=== PATIENT | male | born 1955 | race Caucasian/White ===

== ENCOUNTER → 2019-07-20 08:49 | Outpatient (REF) | payer MEDICARE, SELFPAY | LOC: ANHLAB 08:49 | PROVIDERS: PCP Family Medicine; Visit Provider Nurse Practitioner | DX: D49.2 Neoplasm of unspecified behavior of bone, soft tissue, and skin (principal); C44.1192 Basal cell carcinoma of skin of left lower eyelid, including canthus | CPT/HCPCS: 88305 ==

== ENCOUNTER → 2019-08-07 09:56 | Outpatient (REF) | payer MEDICARE, SELFPAY | LOC: ANHLAB 09:56 | PROVIDERS: PCP Family Medicine; Visit Provider Nurse Practitioner | DX: C44.111 Basal cell carcinoma of skin of unspecified eyelid, including canthus (principal) | CPT/HCPCS: 88305; 88331 ==

== ENCOUNTER 2019-12-02 01:33 | Outpatient (CLI) | payer MEDICARE, SELFPAY ==
[2019-12-02 18:03] LABS: SARS-CoV-2 RNA PCR Negative
== END 2019-12-02 01:34 | disposition home or self-care (01) ==
LOC: ANHCOVIDDT 01:33
PROVIDERS: PCP Family Medicine; Visit Provider Internal Medicine Critical Care Medicine
DX: Z01.812 Encounter for preprocedural laboratory examination (principal); Z20.828 Contact with and (suspected) exposure to other viral communicable diseases
CPT/HCPCS: 87635; C9803; U0003

== ENCOUNTER 2019-12-05 06:33 | Outpatient (CLI) | payer MEDICARE, SELFPAY ==
--- NOTE | 2019-12-21 13:13 | WPDSLEEPSTUD ---
Sleep Study Date of Study: 12/05/19 Ordering Provider: Ping Bardales MD Interpreting Physician: Ping Bardales MD Sleep Study Type: Polysomnogram Height: 1.68 m Weight: 80.7 kg Body Mass Index: 28.7 Neck Circumference (inches): 15 [place]: 3 Reason for Sleep Study History of severe IGGY in 2008 with PLM; no treatment, Dr Kline wanted follow up Sleep History Simba Zelaya is a 64 year old man referred by Dr Kline with a history of severe IGGY in January 2009 with periodic limb movements, was not treated. He does not feel that he has sleep issues, was referred due to cardiac history. The patient says that he has no issues with his sleep. He denies snoring, waking at night with heartburn or coughing, waking at night feeling short of breath, occasionally has trouble sleeping if he has a cold. He does not sweat excessively at night, does not notice his heart pounding at night, occasionally falls asleep in the day, rarely involuntarily, and does not comment if this has happened while driving. He does not fall asleep during physical effort, does not have loss of muscle tone with strong emotion, and does not have problems at work due to excessive daytime sleepiness. He denies feeling paralyzed on waking or falling asleep, and does not have vivid imagery on waking or falling sleep. He is not afraid to go to sleep. He does not have nightmares, does not remember his dreams, denies having racing thoughts. He rarely feels sad or depressed and rarely has anxiety. HE denies muscular tension, does not notice parts of his body jerking at night, and he does not kick at night. He denies having crawly or achy feelings in his legs or other leg pain at night. He does not have morning jaw pain, and denies grinding his teeth at night. He occasionally is bothered by pain in the day, rarely wakes with pain at night, never wakes up feeling stiff in the morning with sore achy muscles of pain in the neck and spine. He has memory problems sometimes and erectile dysfunction all the time. The patient says he had a heart attack approximately 10 years ago. He lost down to 155 lb and now is up to 178. As far as his sleep complaints he is not sure if he snores because his sleeps in a separate room. His bedtime is 10:00 p.m. falling asleep usually easily, but can take longer. He watches TV until falling asleep. He wakes in the night to urinate. Wake time is 5:00 a.m. He does feel refreshed. He does not have dreams recall. He drinks no coffee. He does have some Gatorade but that does not contain caffeine. Sometimes he has caffeine from other sources. The pain in his feet sometimes keeps him from falling asleep, better now. Wakes up with an extremely dry mouth on occasion. His mood is stable. [facility] Past Medical History Medical History (Updated 12/21/19 @ 14:30 by Ping Bardales MD) Abnormal stress test Erectile dysfunction Essential hypertension Grade I diastolic dysfunction Hyperlipidemia Memory difficulties IGGY (obstructive sleep apnea) (~01/2009) Prostate cancer screening Reflex sympathetic dystrophy Wellness examination Surgical History Surgical History (Updated 12/21/19 @ 13:40 by Ping Bardales MD) H/O knee surgery Status post fusion of wrist Family History Family History Father Hypertension Family history of cardiovascular disease Mother Diabetes mellitus Hypertension Sibling Carcinoma of colon Other Family history of arthritis Social History Social History Smoking status: Never smoker Alcohol intake: never Substance use: never Medications atorvastatin 20 mg orally daily bupropion 150 mg BID orally daily lisinopril 20 mg orally daily gabapentin 300 mg three times a day Aspirin 81 mg once a day Nitric oxide blend 425 mg daily DHEA 25 mg a day [facility] Fiber Therapy 200 mg twice a day Vitamin D3 25 mg twice a da
[2019-12-21 14:47] VITALS: BMI 28.7
== END 2019-12-05 06:34 | disposition home or self-care (01) ==
LOC: ANHCSM 15:25
PROVIDERS: PCP Family Medicine; Visit Provider Internal Medicine Critical Care Medicine
DX: G47.33 Obstructive sleep apnea (adult) (pediatric) (principal)
CPT/HCPCS: 95810

== ENCOUNTER → 2020-01-16 10:43 | Outpatient (REF) | payer MEDICARE, SELFPAY | LOC: ANHLAB 10:43 | PROVIDERS: PCP Family Medicine; Visit Provider Nurse Practitioner | DX: D49.2 Neoplasm of unspecified behavior of bone, soft tissue, and skin (principal) | CPT/HCPCS: 88305 ==

== ENCOUNTER 2020-09-25 12:29 | Outpatient (CLI) | payer MEDICARE, SELFPAY ==
[2020-09-25 12:56] LABS: Basophils Percent Auto 0.4 % (0.2-1.2); Hematocrit 54.7 % (42.0-52.0); Hemoglobin 18.6 g/dL (14.0-18.0); Immature Granulocyte Absolute 0.05 K/mm3 (0.00-0.031); Immature Granulocyte Percent A 0.6 % (0-0.5); Lymphocytes Absolute Auto 2.03 K/mm3 (0.9-3.2); Lymphocytes Percent Auto 22.8 % (18.3-44.2); Mean Corpuscular Hemoglobin 30.1 pg (26-34); Mean Corpuscular Volume 88.5 fl (80-100); Mean Platelet Volume 9.7 fl (7.4-10.4); Monocytes Absolute Auto 0.6 K/mm3 (0.1-0.6); Monocytes Percent Auto 6.5 % (2.6-8.5); Neutrophils Absolute Auto 6.2 K/mm3 (1.3-6.7); Neutrophils Percent Auto 69.7 % (45.5-73.1); Platelet Count Result 249 k/mm3 (150-375); Red Blood Count 6.18 M/mm3 (4.6-6.20); Red Cell Distribution Width 12.6 % (11.5-14.5); White Blood Count 8.9 K/mm3 (4.5-10.0)
[2020-09-25 13:41] LABS: Alanine Aminotransferase 51 U/L (4-50); Albumin Level 4.4 g/dL (3.5-5.1); Alkaline Phosphatase 60 U/L (38-126); Anion Gap 10 mmol/L (8-16); Aspartate Amino Transferase 46 U/L (17-59); Bilirubin,Total 0.7 mg/dL (0.2-1.3); Blood Urea Nitrogen 18 mg/dL (9-20); Calcium 9.8 mg/dL (8.4-10.2); Carbon Dioxide 26 mmol/L (22-30); Chloride 103 mmol/L (98-107); Estimated Glomerular Filt Rate > 60; Glucose 83 mg/dL (75-110); Potassium 4.3 mmol/L (3.4-5.0); Sodium 139 mmol/L (137-145)
[2020-09-27 16:36] LABS: Erythropoietin (EPO) 12.8 mIU/mL (2.6-18.5)
[2020-10-02 17:27] LABS: CALR Exon 9 Mutation Not Detected (Not Detected); CSF3R Exon 14/17 Mutation Not Detected (Not Detected); JAK2 Exon 12 Mutation Not Detected (Not Detected); JAK2 V617F Mutation Not Detected (Not Detected); MPL Exon 10 Mutation Not Detected (Not Detected); Specimen Source Blood
== END 2020-09-25 12:30 | disposition home or self-care (01) ==
LOC: ANHLAB 12:34
PROVIDERS: PCP Family Medicine; Visit Provider Internal Medicine Hematology & Oncology
DX: D75.1 Secondary polycythemia (principal)
CPT/HCPCS: 36415; 80053; 81219; 81270; 81402; 81403; 81479; 82668; 85025

== ENCOUNTER → 2020-10-14 08:00 | Outpatient (REF) | payer MEDICARE, SELFPAY | LOC: ANHLAB 08:00 | PROVIDERS: PCP Internal Medicine Cardiovascular Disease; Visit Provider Nurse Practitioner | DX: C44.319 Basal cell carcinoma of skin of other parts of face (principal) | CPT/HCPCS: 88305; 88331 ==

== ENCOUNTER → 2021-06-24 08:31 | Outpatient (REF) | payer MEDICARE, SELFPAY | LOC: ANHLAB 08:31 | PROVIDERS: PCP Family Medicine; Visit Provider Nurse Practitioner | DX: C44.219 Basal cell carcinoma of skin of left ear and external auricular canal (principal) | CPT/HCPCS: 88305 ==

== ENCOUNTER → 2021-08-11 10:00 | Outpatient (REF) | payer MEDICARE, SELFPAY | LOC: ANHLAB 10:00 | PROVIDERS: PCP Family Medicine; Visit Provider Nurse Practitioner | DX: C44.219 Basal cell carcinoma of skin of left ear and external auricular canal (principal) | CPT/HCPCS: 88305; 88331 ==

== ENCOUNTER 2021-11-11 07:53 | Outpatient (CLI) | payer MEDICARE, SELFPAY | END 2021-11-11 07:54 | disposition home or self-care (01) | LOC: ANHAUDIO 07:54 | PROVIDERS: PCP Family Medicine; Visit Provider Otolaryngology | DX: H90.3 Sensorineural hearing loss, bilateral (principal) | CPT/HCPCS: 92557; 92567 ==

== ENCOUNTER 2021-12-30 14:24 | Outpatient (NON) | payer MEDICARE, SELFPAY | END 2021-12-30 14:25 | disposition home or self-care (01) | LOC: ANHLAB 14:25 | PROVIDERS: PCP Family Medicine; Visit Provider Nurse Practitioner | DX: C44.529 Squamous cell carcinoma of skin of other part of trunk (principal) | CPT/HCPCS: 88305 ==

== ENCOUNTER 2022-01-19 14:32 | Outpatient (NON) | payer MEDICARE, SELFPAY | END 2022-01-19 14:33 | disposition home or self-care (01) | LOC: ANHLAB 14:33 | PROVIDERS: PCP Nurse Practitioner; Visit Provider Nurse Practitioner | DX: C44.92 Squamous cell carcinoma of skin, unspecified (principal) | CPT/HCPCS: 88305; 88331 ==

== ENCOUNTER 2022-01-28 01:15 | Day surgery (SDC) | payer MEDICARE, SELFPAY ==
[2022-01-19 14:58] VITALS: BMI 26.6
--- NOTE | 2022-01-27 08:50 | PM.HPGS ---
History of Present Illness History of Present Illness Consent: Risks, benefits, and alternatives have been discussed and questions answered. Patient agrees to proceed with procedure. Chief complaint: family hx colon ca Narrative: Simba Zelaya is a 66 year old male here for screening colonoscopy. He has a family history of colon cancer. He also has had polyps removed himself in the past. Review of Systems Review of Systems: All systems reviewed & are unremarkable except as noted in HPI and below PMFSH Past Medical History Medical History Abnormal stress test Erectile dysfunction Essential hypertension Grade I diastolic dysfunction High cholesterol Hyperlipidemia Lateral epicondylitis of right elbow Lewy body dementia Memory difficulties IGGY (obstructive sleep apnea) (~01/2009) Parkinsonism Prostate cancer screening Reflex sympathetic dystrophy Skin cancer Wellness examination Surgical History Surgical History H/O knee surgery Status post fusion of wrist Status post fusion of wrist Family History Family History Father Hypertension Family history of cardiovascular disease Heart disease Mother Diabetes mellitus Hypertension Sibling Carcinoma of colon Brain cancer Other Family history of arthritis Social History Social History Smoking status: Never smoker Second hand tobacco smoke exposure: Yes Alcohol intake: former Alcohol use details: quit 1993 Substance use: never Substance use type: does not use Living arrangements: with family Gender identity (if verbalized by the patient): Male Sexual Orientation (if Verbalized by the Patient): Straight or Heterosexual Spiritual care concerns: No Meds Home Medications and Allergies Home Medications Medication Instructions Recorded Confirmed Type aspirin 81 mg tablet,delayed 81 mg PO DAILY 05/03/20 01/19/22 History release (Adult Aspirin Regimen) cholecalciferol (vitamin D3) 25 25 mcg PO DAILY 05/03/20 01/19/22 History mcg (1,000 unit) capsule multivitamin (Daily Multi-Vitamin 1 tablet PO DAILY 05/03/20 01/19/22 History tablet) nitric oxide blend 425 mg PO DAILY 05/03/20 01/19/22 History prasterone (dhea) 25 mg capsule 25 mg PO DAILY 05/03/20 01/19/22 History (DHEA) famotidine 40 mg tablet (Pepcid) 40 mg PO DAILY #1 tablet 08/27/20 01/19/22 Rx lisinopril 20 mg tablet 20 mg PO DAILY #90 tabs 07/16/21 01/19/22 Rx cetirizine 10 mg tablet (24Hour 10 mg PO DAILY PRN Allergy Symptoms 10/17/21 01/19/22 History Allergy) trazodone 50 mg tablet 50 mg PO QHS PRN Pain 10/17/21 01/19/22 History atorvastatin 20 mg tablet 40 mg PO DAILY 11/19/21 01/19/22 History gabapentin 300 mg capsule 400 mg PO TID 11/19/21 01/19/22 History fluticasone propionate 50 See Rx Instructions .Route 12/22/21 01/19/22 Rx mcg/actuation nasal .COMPLEX #80 grams spray,suspension duloxetine 60 mg capsule,delayed 60 mg PO DAILY 01/19/22 01/19/22 History release sprinkle (Drizalma Sprinkle) Allergies Allergy/AdvReac Type Severity Reaction Status Date / Time No Known Allergies Allergy Verified 01/28/22 06:20 Exam Resp: Auscultation: clear to auscultation bilaterally Cardio: Rate: regular rate Rhythm: regular rhythm GI: GI Palp: Yes Soft to palpation and No Tenderness to palpation present (GI) Assessment and Plan Assessment and plan (1) Colon cancer screening: Code(s): Z12.11 - Encounter for screening for malignant neoplasm of colon Status: Acute Assessment and Plan: Colonoscopy with possible biopsy or polypectomy or cautery or injection of substances.
[2022-01-28 06:20] VITALS: BP 120/77; PULSE 81; RESP 18; TEMP 36.4; O2SAT 100
[2022-01-28] MEDS: LACTATED RINGERS 1,000 ML 150 ML IV CONT (06:31)
--- NOTE | 2022-01-28 07:27 | WPDANESEPPF ---
Anes - Initial Pre Proc Eval Procedure: Operation Date: 01/28/22 07:30 Proposed Procedures p Screening Colonoscopy - Antwan Leigh MD Date/Time: 01/28/22 07:27 Surgeon: Antwan Leigh MD Pre Op Diagnosis: family hx colon ca Patient Data Age: 66 Gender: M Height: 1.68 m Weight: 76.7 kg Last Vital Signs Temp 97.6 F 01/28/22 06:20 Pulse 81 01/28/22 06:20 Resp 18 01/28/22 06:20 BP 120/77 01/28/22 06:20 Pulse Ox 100 01/28/22 06:20 O2 Del Method Room Air 01/28/22 06:20 Allergies Allergy/AdvReac Type Severity Reaction Status Date / Time No Known Allergies Allergy Verified 01/28/22 06:20 Home Medications Medication Instructions Recorded Confirmed Type aspirin 81 mg tablet,delayed 81 mg PO DAILY 05/03/20 01/19/22 History release (Adult Aspirin Regimen) cholecalciferol (vitamin D3) 25 25 mcg PO DAILY 05/03/20 01/19/22 History mcg (1,000 unit) capsule multivitamin (Daily Multi-Vitamin 1 tablet PO DAILY 05/03/20 01/19/22 History tablet) nitric oxide blend 425 mg PO DAILY 05/03/20 01/19/22 History prasterone (dhea) 25 mg capsule 25 mg PO DAILY 05/03/20 01/19/22 History (DHEA) famotidine 40 mg tablet (Pepcid) 40 mg PO DAILY #1 tablet 08/27/20 01/19/22 Rx lisinopril 20 mg tablet 20 mg PO DAILY #90 tabs 07/16/21 01/19/22 Rx cetirizine 10 mg tablet (24Hour 10 mg PO DAILY PRN Allergy Symptoms 10/17/21 01/19/22 History Allergy) trazodone 50 mg tablet 50 mg PO QHS PRN Pain 10/17/21 01/19/22 History atorvastatin 20 mg tablet 40 mg PO DAILY 11/19/21 01/19/22 History gabapentin 300 mg capsule 400 mg PO TID 11/19/21 01/19/22 History fluticasone propionate 50 See Rx Instructions .Route 12/22/21 01/19/22 Rx mcg/actuation nasal .COMPLEX #80 grams spray,suspension duloxetine 60 mg capsule,delayed 60 mg PO DAILY 01/19/22 01/19/22 History release sprinkle (Keira Sprinkle) Patient hx anesthesia problems: none Family hx anesthesia problems: none Results Review: All pre-operative results and documents have been reviewed as part of the pre-operative evaluation. [facility] Past Medical History Medical History Abnormal stress test Erectile dysfunction Essential hypertension Grade I diastolic dysfunction High cholesterol Hyperlipidemia Lateral epicondylitis of right elbow Lewy body dementia Memory difficulties IGGY (obstructive sleep apnea) (~01/2009) Parkinsonism Prostate cancer screening Reflex sympathetic dystrophy Skin cancer Wellness examination Surgical History Surgical History H/O knee surgery Status post fusion of wrist Status post fusion of wrist Family History Family History Father Hypertension Family history of cardiovascular disease Heart disease Mother Diabetes mellitus Hypertension Sibling Carcinoma of colon Brain cancer Other Family history of arthritis Social History Social History Smoking status: Never smoker Second hand tobacco smoke exposure: Yes Alcohol intake: former Alcohol use details: quit 1993 Substance use: never Substance use type: does not use Living arrangements: with family Gender identity (if verbalized by the patient): Male Sexual Orientation (if Verbalized by the Patient): Straight or Heterosexual Spiritual care concerns: No Anes - Eval Final PreProcedure Day of Procedure 01/28/22 07:27 Patient weight: normal Heart: regular rate and rhythm Lungs: clear to auscultation Airway: Mallampati scale class III Neurological: alert and oriented Last oral intake: >/= 8 hours ASA classification: III Emergent: no Anesthetic plan: proceed Anesthesia type and monitoring: general GIVS and standard monitoring Results Review: All pre-operative results and documents have been re
[2022-01-28 07:45] VITALS: BP 85/56; PULSE 60; RESP 18; O2SAT 97
[2022-01-28 07:55] VITALS: BP 111/74; PULSE 62; RESP 19; O2SAT 97
[2022-01-28 08:05] VITALS: BP 109/76; PULSE 61; RESP 15; O2SAT 100
== END 2022-01-28 08:14 | disposition home or self-care (01) ==
PROVIDERS: PCP Family Medicine; Visit Provider Internal Medicine Gastroenterology
PROC: 0DJD8ZZ Inspection of Lower Intestinal Tract, Via Natural or Artificial Opening Endoscopic (ICD-10-PCS; CPT 45378; principal; 2022-01-28 07:30)
DX: Z12.11 Encounter for screening for malignant neoplasm of colon (principal); K57.30 Diverticulosis of large intestine without perforation or abscess without bleeding; K64.8 Other hemorrhoids; K64.4 Residual hemorrhoidal skin tags; Z86.010 Personal history of colon polyps; Z80.0 Family history of malignant neoplasm of digestive organs; Z79.82 Long term (current) use of aspirin; I11.9 Hypertensive heart disease without heart failure; E78.5 Hyperlipidemia, unspecified; G47.30 Sleep apnea, unspecified; G20 Parkinson's disease; F02.80 Dementia in other diseases classified elsewhere, unspecified severity, without behavioral disturbance, psychotic disturbance, mood disturbance, and anxiety; G90.50 Complex regional pain syndrome I, unspecified
CPT/HCPCS: G0105; J2001; J2704; J7120

== ENCOUNTER 2022-06-30 09:52 | Outpatient (NON) | payer MEDICARE, SELFPAY | END 2022-06-30 09:53 | disposition home or self-care (01) | LOC: ANHLAB 07-01 09:55 | PROVIDERS: PCP Family Medicine; Visit Provider Nurse Practitioner | DX: D22.72 Melanocytic nevi of left lower limb, including hip (principal) | CPT/HCPCS: 88305 ==

== ENCOUNTER 2022-07-28 12:17 | Outpatient (NON) | payer MEDICARE, SELFPAY | END 2022-07-28 12:18 | disposition home or self-care (01) | LOC: ANHLAB 07-29 12:17 | PROVIDERS: PCP Family Medicine; Visit Provider Nurse Practitioner | DX: I78.1 Nevus, non-neoplastic (principal) | CPT/HCPCS: 88305 ==

== ENCOUNTER 2022-11-18 01:11 | Day surgery (SDC) | payer MEDICARE, SELFPAY ==
[2022-11-17 11:44] VITALS: BMI 27.5
[2022-11-18] VITALS (9 sets, daily range): BP systolic 110–138; BP diastolic 76–93; PULSE 54–67; RESP 16–18; TEMP 36.5; O2SAT 94–100; BMI 28.5
[2022-11-18 07:53] LABS: Basophils Percent Auto 0.6 % (0.2-1.2); Hematocrit 41.2 % (42.0-52.0); Hemoglobin 14.3 g/dL (14.0-18.0); Immature Granulocyte Absolute 0.02 K/mm3 (0.00-0.031); Immature Granulocyte Percent A 0.3 % (0-0.5); Lymphocytes Percent Auto 34.6 % (18.3-44.2); Mean Corpuscular HGB Conc 34.7 g/dl (32-36); Mean Corpuscular Hemoglobin 30.5 pg (26-34); Mean Corpuscular Volume 87.8 fl (80-100); Mean Platelet Volume 10.4 fl (7.4-10.4); Monocytes Absolute Auto 0.6 K/mm3 (0.1-0.6); Monocytes Percent Auto 9.6 % (2.6-8.5); Neutrophils Absolute Auto 3.6 K/mm3 (1.3-6.7); Neutrophils Percent Auto 54.9 % (45.5-73.1); Platelet Count Result 234 k/mm3 (150-375); Red Blood Count 4.69 M/mm3 (4.6-6.20); Red Cell Distribution Width 11.8 % (11.5-14.5); White Blood Count 6.6 K/mm3 (4.5-10.0)
[2022-11-18 07:59] LABS: Anion Gap 9 mmol/L (8-16); Blood Urea Nitrogen 18 mg/dL (9-20); Calcium 9.1 mg/dL (8.4-10.2); Carbon Dioxide 24 mmol/L (22-30); Chloride 104 mmol/L (98-107); Estimated Glomerular Filt Rate > 60; Glucose 86 mg/dL (65-110); Potassium 3.7 mmol/L (3.4-5.0); Sodium 137 mmol/L (137-145)
--- NOTE | 2022-11-18 08:31 | WPDMODSED ---
Moderate Sedation Note-Pt Data Patient Data Diagnosis: Coronary artery disease with previous coronary CTA Present Complaint: exertional dyspnea? Ischemic equivalent Procedure to be performed/Plan: left heart catheterization Allergies Allergy/AdvReac Type Severity Reaction Status Date / Time No Known Allergies Allergy Verified 11/18/22 07:24 Home Medications Medication Instructions Recorded Confirmed Type aspirin 81 mg tablet,delayed 81 mg PO DAILY 05/03/20 11/18/22 History release (Adult Aspirin Regimen) cholecalciferol (vitamin D3) 25 25 mcg PO DAILY 05/03/20 11/18/22 History mcg (1,000 unit) capsule famotidine 40 mg tablet (Pepcid) 40 mg PO DAILY #1 tablet 08/27/20 11/18/22 Rx cetirizine 10 mg tablet (24Hour 10 mg PO BID Allergy Symptoms 10/17/21 11/18/22 History Allergy) atorvastatin 20 mg tablet 40 mg PO DAILY 11/19/21 11/18/22 History lisinopril 20 mg tablet 20 mg PO DAILY #90 tabs 04/13/22 11/17/22 Rx duloxetine 60 mg capsule,delayed 60 mg PO DAILY 11/17/22 11/18/22 History release fluticasone propionate 50 See Rx Instructions .Route 11/17/22 11/18/22 History mcg/actuation nasal .COMPLEX PRN Congestion spray,suspension gabapentin 400 mg capsule 400 mg PO TID 11/17/22 11/18/22 History Current Medications: Active Medications Sodium Chloride (Normal Saline Iv) 500 mls @ 100 mls/hr IV CONT .Q5H JELANI Sedation/Anesthesia: No previous sedation/anesthesia problems (including family history). [facility] Past Medical History Medical History Abnormal stress test Erectile dysfunction Essential hypertension Grade I diastolic dysfunction High cholesterol Hyperlipidemia Lateral epicondylitis of right elbow Lewy body dementia Memory difficulties IGGY (obstructive sleep apnea) (~01/2009) Parkinsonism Prostate cancer screening Reflex sympathetic dystrophy Skin cancer Wellness examination Surgical History Surgical History H/O knee surgery Status post fusion of wrist Status post fusion of wrist Family History Family History Father Hypertension Family history of cardiovascular disease Heart disease Mother Diabetes mellitus Hypertension Sibling Carcinoma of colon Brain cancer Other Family history of arthritis Social History Social History Smoking status: Never smoker Second hand tobacco smoke exposure: Yes Alcohol intake: never Alcohol use details: quit 1993 Substance use: never Substance use type: does not use Lack of Transportation: No Lack of Food: Never True Current Housing: I Have Housing Concerned About Future Housing: No Difficulty Paying Gas/Electric Bills: No Difficulty Paying for Meds: No Currently Unemployed: No Education: High School Diploma/GED Difficulty w/ Childcare or Family Care: No Living arrangements: with family Occupation/Education: retired Gender identity (if verbalized by the patient): Male Sexual Orientation (if Verbalized by the Patient): Straight or Heterosexual Spiritual care concerns: No Mod Sed Physical Exam Physical Exam Pre Procedural Exam: Normal: Appearance, Throat, Airway, Lungs, Heart Size, Heart Rate, Heart Rhythm, Neuro Exam and Extremities Hours since solid foods: 12 Hours since liquid intake: 12 Mallampati Classification: class II Internal Medicine - PN: Obj Da Vital Signs Vital Signs: Vital Signs - 24 hr 11/18/22 07:27 Temperature 36.5 C Pulse Rate 67 Respiratory Rate 16 Blood Pressure 138/77 Pulse Oximetry 100 Oxygen Delivery Room Air Meds/Results Medications: Active Medications Generic Name Dose Route Start Last Admin Trade Name Freq PRN Reason Stop Dose Admin Sodium Chloride 500 mls @ 100 mls/hr 11/18/22 07:00 Normal Saline Iv IV CONT
--- NOTE | 2022-11-18 08:54 | WPDCARDPROC ---
Cardiac Cath Procedure Note Date of procedure:: 11/18/22 Performing physician:: Simba Narayan MD Indication:: exertional dyspnea ? Ischemic equivalent Brief clinical history:: this is a 66-year-old man who is known to have some coronary disease by virtue of a CTA that has been done in the past treat this exam suggested modest nonocclusive coronary disease. He is now reporting symptoms of exertional dyspnea raising some more concerned Procedure Procedure performed:: coronary angiogram left ventriculogram Angio-Seal to right femoral artery Sedation/Medication given:: fentanyl 25 mg Versed 1 mg case start time 8:37 a.m. case end time 8:52 a.m. sedation provided by Isabel Rosa RN, trained observer Access site:: right femoral artery Estimated blood loss:: less than 20 cc Procedure note:: patient was brought to the corn lab technician in the postabsorptive state where the right femoral triangle was prepared and draped in the normal fashion. Anesthesia was provided with 1% lidocaine infiltrated locally. Using modified Seldinger technique the right femoral artery was punctured and a 5 Bangladeshi vascular sheath was placed. I then used a 5 Bangladeshi angled pigtail catheter to measure left-sided hemodynamics and inject a left ventriculogram in the 30 degree MANLEY projection. The left coronary artery was then injected using a standard 5 Bangladeshi FL4 catheter. The right coronary artery was injected using standard 5 Bangladeshi JR4 catheter. The cineangiograms were then reviewed the case was terminated. An angiogram was performed to the femoral artery through the sheath after which an Angio-Seal device was deployed with a good hemostatic result. There were no procedural complications and he left the corn lab technician with no evidence of groin hematoma. Findings:: Hemodynamics: Central aortic 128 over 68 left ventricle 128/0 end-diastolic pressure 12 systolic gradient upon pullback across the aortic valve. Left ventricle: The LV is of normal size and contracts nicely in all segments the global ejection fraction is 65% by visual estimation regional wall motion abnormalities were seen. The left main coronary artery is relatively short and is patent the left anterior descending is a medium caliber vessel extending down to the apex. There is angiographically mild disease in the proximal 3rd of the LAD representing no more than about 40-50% stenosis. There no significant lesions distal to this. The circumflex is a medium caliber artery giving rise to the marginal branches the circumflex is angiographically unremarkable the right coronary artery is moderate caliber and dominant to the posterior circulation. The patient has a right coronary which bifurcates early in the 2nd portion the artery. Other then this the RCA is angiographically normal Conclusion:: 1. right coronary dominant circulation with angiographically her mild coronary artery disease with mild nonocclusive disease in the proximal 3rd of the LAD as described above 2. normal left ventricular systolic contractility Simba Narayan MD FACC
== END 2022-11-18 11:55 | disposition home or self-care (01) ==
PROVIDERS: PCP Family Medicine; Visit Provider Specialist
PROC: 4A023N7 Measurement of Cardiac Sampling and Pressure, Left Heart, Percutaneous Approach (ICD-10-PCS; CPT 93452; principal; 2022-11-18 08:30)
DX: I25.10 Atherosclerotic heart disease of native coronary artery without angina pectoris (principal); R06.09 Other forms of dyspnea; R94.39 Abnormal result of other cardiovascular function study; I11.9 Hypertensive heart disease without heart failure; E78.00 Pure hypercholesterolemia, unspecified; G20 Parkinson's disease; F02.80 Dementia in other diseases classified elsewhere, unspecified severity, without behavioral disturbance, psychotic disturbance, mood disturbance, and anxiety; G47.33 Obstructive sleep apnea (adult) (pediatric); G90.50 Complex regional pain syndrome I, unspecified; Z79.82 Long term (current) use of aspirin
CPT/HCPCS: 36415; 80048; 85025; 93458; C1760; C1887; C1894; G0269; J1644; J2250; J3010; J7040

== ENCOUNTER 2023-06-02 09:10 | Outpatient (CLI) | payer MEDICARE, SELFPAY ==
--- NOTE | ~2023-06-02 | XR_ITS ---
EXAMINATION: XR toe 1st RT min 2V DATE: 06/02/2023 09:29 INDICATION: Right great toe pain TECHNIQUE: Dorsal plantar, lateral and 2 oblique views of the right great toe were obtained. COMPARISON: None FINDINGS: No fracture. 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 Mi ld osteoarthritis at several of the visualized tarsal metatarsal and interphalangeal joints. Soft tis sues are unremarkable. 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 Reviewed, dictated and finalized at location B.
== END 2023-06-02 09:11 ==
PROVIDERS: PCP Family Medicine; Visit Provider Family Medicine
DX: M20.11 Hallux valgus (acquired), right foot (principal); M19.071 Primary osteoarthritis, right ankle and foot
CPT/HCPCS: 73660

== ENCOUNTER 2025-01-05 08:31 | Outpatient (CLI) | payer MEDICARE, SELFPAY ==
--- NOTE | 2025-01-05 08:30 | ECG_ITS ---
Test Date: 2025-01-05 08:39:49 Measurements Intervals Needles Rate: 64 P: 36 CT: 165 QRS: -41 QRSD: 98 T: 43 QT: 382 QTc: 396 Interpretive Statements SINUS RHYTHM LEFT AXIS DEVIATION PATTERN CONSISTENT WITH PULMONARY DISEASE OLTAGE CRITERIA FOR LVH BASELINE ARTIFACT- I, II, III, AVR, AVL, AVF BORDERLINE ECG No previous ECG available for comparison Electronically Signed On 01-05-2025 10:09:33 CDT by Feng Singh D.O.
--- OUTSIDE RECORDS SUMMARY | 2025-01-05 08:42 | XMS_ITS | Clinical Summary ---
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 [employer] Gender Identity Not on file Sexual Orientation Not on file Plan of Treatment Health Maintenance Due Date Last Done Comments Hepatitis C Virus (HCV) Screening 1955 TdaP Immunization 1955 Cologuard 1998 Colonoscopy 1998 Colorectal Cancer Screening 1998 Immunochemical Fecal Occult Blood 1998 Pneumococcal Immunization (5 0+ years) (1 of 1 - PCV) 11/24/2003 Zoster Immunization (1 of 2) 11/24/2003 Influenza Immunization (#1) 2024 SARS-COV-2 Immunization ( - season) 2024 Respiratory Syncytial Virus (RSV) Immunization (Adult) (1 - 1-dose 75+ series) 2028 Hepatitis B Immunization Aged Out No longer eligible based on patient's age to complete this topic Human Papillomavirus (HPV) Immunization Aged Out No longer eligible b ased on patient's age to complete this topic Meningococcal Immunization (ACWY) Aged Out No longer eligible based on patient's age to complete this topic Rotavirus Immunization Aged Out No lo nger eligible based on patient's age to complete this topic
--- OUTSIDE RECORDS SUMMARY | 2025-01-05 08:42 | XMS_ITS | Clinical Summary ---
Author Organization [facility] Address [address] [facility] [place] [address] Care Team Providers Care Hot Plate Plywood Press Operator Name Role Phone Moose Diallo MD Primary Care Provider [phone] Source Comments [facility],non-owned Affiliates and Associated Physician Practices is amultiple site organization consisting of ambulatory clinics and hospital sitesin [place], [place], [place] and [place]. This disclosure is being madepursuant to the Care Everywhere program and may not contain all information available regarding this patient. Last updated 17.[facility] Allergies No known active allergies Medications * Be aware that medications may not be up to date on this document. Alwaysverify current medications with the patient. atorvastatin (Lipitor) 40 MG tablet Take 1 (one) tablet by mouth once daily 2 Active cetirizine (ZyrTEC) 10 MG tablet Take 1 (one) tablet by mouth 2 times daily 2 Active DULoxetine (Cymbalta) 60 MG capsule Take 1 (one) capsule by mouth once daily 2 Active famotidine (Pepcid) 20 MG tablet Take 1 (one) tablet by mouth 2 times daily 2 Active fluticasone propionate (Flonase) 50 MCG/ACT nasal spray Flippin 1 (one) spray into each nostril once daily 2 Active gabapentin (Neurontin) 400 MG capsule Take 1 (one) capsule by mouth 3 times daily 2 Active lisinopril (Prinivil; Zestril) 20 MG tablet Take 1 (one) tablet by mouth once daily 2 Active Cyanocobalamin 1000 MCG Take 1 (one) tablet by mouth once daily Active aspirin EC (Ecotrin) 81 MG tablet Take 1 (one) tablet by mouth once daily May resume after a week or no longer taking ibuprofen regularly 3 Active sodium chloride-sodium bicarb 2300-700mg (Neilmed Sinus Rinse) 2300-700 MG Kit 1 (one) kit by Irrigation route as directed Active oral balance dry mouth (Biotene) GELIndications: Dry mouth Apply to affected area 4 times daily 42 g 11 3 Active Cholecalciferol 1.25 MG (91196 UT)Indications: Vitamin D deficiency Take 50,000 Units by mouth every 7 days 12 capsule 3 4 Active traZODone (Desyrel) 50 MG tabletIndicatio ns:Chronic insomnia TAKE 1 TABLET BY MOUTH AT BEDTIME 90 tablet 3 4 Active Active Problems Problem Noted Date Diagnosed Date Orthostasis 02/20/2021 09/15/2022 Erythrocytosis 10/11/2020 09/15/2022 Coronary artery disease invo lving [place] coronary artery of [place] heart without angina pectoris 02/09/2020 09/15/2022 Abnormal stress test 01/27/2019 09/15/2022 Essential hypertension 01/27/2019 3 Hyperlipidemia LDL goal <70 01/27/201908/21 Obstructive sleep apnea 01/27/2019 09/16/19 23 Knee effusion, left 05/03/2017 09/15/2022 Primary osteoarthritis of left knee 05/03/2017 09/15/2022 Social History Tobacco Use Types Packs/Day Years Used Date Smoking Tobacco: Never Smokeless Tobacco: Never Tobacco Cessation:Counseling Given: Not Answered Alcohol Use Standard Drinks/Week Comments Not Currently 0 (1 standard drink = 0.6 oz pur e alcohol) no alcohol since 1993 AUDIT-C Answer Date Recorded Frequency of Alcohol Consumption Not on file 10/19/2022 Q2: How many drinks containi ng alcohol do you have on a typical day when you are drinking? Patient does not drink 3 Q3: How often do you have si x or more drinks on one occasion? 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, Office Helper Clerical Not on file Not on file Not on file Last Filed Vital Signs Vital Sign Reading Time Taken Comments Blood Pressure 129/85 06/28/2023 11:20 AM CDT Pulse 67 06/28/2023 11:20 AM CDT Temperature 36.4 C (97.6 F) 10/19/2022 6:30 PM CDT Respiratory Rate 18 10/19/2022 7:01 PM CDT Oxygen Saturation 94% 10/19/2022 7:01 PM CDT Inhaled Oxygen Concentration 100% 07/27/2022 1 0:24 AM CDT Weight 81.6 kg (180 lb) 06/28/2023 11:20 AM CDT Height 167.6 cm (5' 6) 06/28/2023 11:20 AM CDT Body Mass Index 29.05 06/28/2023 11:20 AM CDT Plan of Treatment Health Maintenance Due Date Last Done Comments COLOGUARD (AGES 45-75) - COL ON CA SCREENING 1953 COLON MONITORING 1953 COLONOSCOPY - COLON CA SCREENING 1953 CT COLONOGRAPHY - COLON CA SCREENING 1953 Colorectal Cancer Screening 1953 FIT - COLON CA SCREENING 1953 FLEX SIG - COLON CA SCREENING 1953 HEPATITIS C SCREENING 11/19/1971 DTAP/TDAP/TD VACCINES (1 - Tdap) 1972 PNEUMOCOCCAL VACCINE 50+ (1 of 1 - PCV) 11/24/2003 ZOSTER VACCINE (1 of 2) 11/24/2003 DEPRESSION SCREENING 03/22/2024 MEDICARE AWV CALENDAR YEAR 2024 COVID-19 VACCINE (1 - 2023-2 5 season) 2024 INFLUENZA VACCINE (#1) 2024 SCREENING FOR DIABETES 10/19/2025 3, 07/30/2022, 07/27/2022 Respiratory Syncytial Virus (RSV) Vaccine Pt: or over 60 yrs (1 - 1-dose 75+ series) 2028 HEPATITIS B VACCINE Aged Out No longe r eligible based on patient's age to complete this topic HIB VACCINE Aged Out No longer eligi ble based on patient's age to complete this topic HPV VACCINE Aged Out No longer eligi ble based on patient's age to complete this topic MENINGOCOCCAL (Group B) VACCINE SHARED DECISION-MAKING Aged Out No longer eligible based on patient's age to complete this topic MENINGOCOCCAL GROUPS A/C/Y/W VACCINE Aged Out No longer eligible b ased on patient's age to complete this topic Medical Devices Implanted Type Area Parts Chaser Device Identifier Shelf Expiration Date Model / Serial / Lot Lead Nrstm Inspr 3 Eltrd Cuf Tn Victro Manuel - [id number] Implanted:Qty: 1 on 10/19/2022 by Sunny Delgado MD at [facility] Right: Neck [employer] 04/14/2025 [id number] / [id number] / Lead Ns Resp - [id number] Implanted:Qty: 1 on 10/19/2022 by Sunny Delgado MD at [facility] Right: Neck [employer] 06/29/2025 4340 / [id number] / Gntr [facility] - [id number] Implanted:Qty: 1 on 10/19/2022 by Sunny Delgado MD at [facility] Right: Neck [employer] 06/19/2025 3028 / [id number] / Procedures Procedure Name Priority Date/Time Associated Diagnosis Comments GLUCOSE - POINT OF CARE Routine 10/19/2022 12:17 PM CDT from Last 3 Months or Most Recently Relevant to Health Maintenance Results * GLUCOSE - POINT OF CARE (10/19/2022 12:17 PM CDT) Glucose WB/POC 79 70 - 115 mg/dL 10/19/2022 12:22 PM CDT [facility] Specimen Type Venous 10/19/2022 12:22 PM CDT [facility] Blood BLOOD SPECIMEN / Unknown 10/19/2022 12:17 PM CDT 10/19/2022 12:22 PM CDT Sunny Delgado MD LAB - POINT OF CARE ORDER ERIN Final Result [facility] [address] [place] [address], [facility] [phone] from Last 3 Months or Most Recently Relevant to Health Maintenance Insurance [facility] MEDIC[facility] ADV [facility]IC[facility] ADV Care Teams Hot Plate Plywood Press Operator Relationship Specialty Start Date End Date Moose Diallo MD [address] [facility] [facility] [place] [address] PCP - General 08/13/21
--- OUTSIDE RECORDS SUMMARY | 2025-01-05 08:42 | XMS_ITS | Clinical Summary ---
Author Organization [facility] Address [facility] [address] [place] [address] Care Team Providers Care Pickle Pumper Name Role Phone Moose Diallo MD Primary Care Provider Allergies No known active allergies Medications lisinopril (PRINIVIL,ZESTR IL) 20 mg tablet 9 Active aspirin 81 mg enteric coated tabletIndicatio ns:Obstructive sleep apnea,Essential hypertension,Hy perlipidemia LDL goal <70,Abnormal stress test Take 1 tablet (81 mg total) by mouth daily 30 tablet 11 9 Active psyllium seed, with dextrose, (FIBER ORAL) Take by mouth Act nivia famotidine (PEPCID) 20 mg tablet Take 1 tablet (20 mg total) by mouth 2 (two) times a day Active cetirizine (ZyrTEC) 10 mg tablet Take 1 tablet (10 mg total) by mouth 2 (two) times a day Active cyanocobalamin (Vitamin B-12) 1,000 mcg tabletIndicatio ns:Prevention of Vitamin B12 Deficiency Take 1 tablet (1,000 mcg total) by mouth daily Active sod chlor,bicarb/sq ueez bottle (NEILMED SINUS RINSE COMPLETE LIZZY) by sinus irrigation route Active traZODone (DESYREL) 50 mg tablet TAKE 1 TABLET(50 MG) BY MOUTH EVERY NIGHT 90 tablet 3 2 Active cholecalciferol (VITAMIN D-3) 50,000 unit capsule Take 1 capsule (50,000 Units total) by mouth every 7 days 4 Active gabapentin (NEURONTIN) 400 mg capsule Take 1 capsule (400 mg total) by mouth 3 (three) times a day [address] (CYMBALTA) 60 mg capsule Take 1 capsule (60 mg total) by mouth daily 90 capsule 3 4 02/10/20 25 Active atorvastatin (LIPITOR) 40 mg tabletIndicatio ns:Hyperlipidem ia LDL goal <70 TAKE 1 TABLET(40 MG) BY MOUTH DAILY 90 tablet [address] (CYMBALTA) 30 mg capsule Take 1 capsule (30 mg total) by mouth daily along with the 60 mg tablet for a total daily dose of 90 mg. 30 capsule 11 5 11/14/19 26 Active Active Problems Problem Noted Date Diagnosed Date Pulmonary hypertension 11/09/2022 Atypical chest pain 11/09/2022 CHERRY (dyspnea on exertion) 11/09/2022 Orthostasis 02/20/2021 Coronary artery disease invo lving [place] coronary artery of [place] heart without angina pectoris 02/09/2020 Obstructive sleep apnea 01/27/2019 Essential hypertension 01/27/2019 Hyperlipidemia LDL goal <70 01/27/2019 Abnormal stress test 01/27/2019 Knee effusion, left 05/03/2017 Primary osteoarthritis of left knee 05/03/2017 Encounters Date Type Department Care Team Description 01/01/2025 11:30 AM CDT Office Visit [facility] [address] [facility] [address] [place] [address] [place] [address] Jacoby Horne MD Memory loss (Primary Dx) from Last 3 Months Surgical History Surgery Date Site/Laterality Comments WRIST SURGERY Wrist Surgery - (Added by TW Conv) FOOT SURGERY JOINT REPLACEMENT left knee Medical History Medical History Date Comments Personal history of other di seases of the circulatory system History of hypertension - (A dded by TW Conv) 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 - (Added by TW Conv) Personal history of other en docrine, nutritional and metabolic disease History of high chol esterol - (Added by TW Conv) Personal history of other me ntal and behavioral disorders History of depression - (Add ed by TW Conv) Personal history of other di seases of the nervous system and sense organs History of reflex symp athetic dystrophy - (Added by TW Conv) Hyperlipidemia Heart disease Hypertension Sleep apnea Family History Medical History Relation Name Comments Brain cancer Brother Fernie Zelaya Cancer Brother Fernie Zelaya Family history of malignant neoplasm - (Added by TW Conv) Colon cancer Brother Fernie Zelaya Heart attack Father Dustin Zelaya Heart disease Father Dustin Zelaya Family history of cardiac disorder - (Added by TW Conv) Hypertension Father Dustin Zelaya Family history of hypertension - (Added by TW Conv) Stroke Father Dustin Zelaya Family history of cerebrovascular accident - (Added by TW Conv) Alzheimer's disease Mother Angle Zelaya Onset--s ome symptoms at 80 that got better with treatment of diabetes, but in her early 90's began treatment with rivastigmine and at 89 y/o. Arthritis Mother Angle Zelaya Family history of arthritis - (Added by TW Conv) Diabetes Mother Angle Zelaya Family history of diabetes mellitus - (Added by TW Conv) Gout Mother Angle Zelaya Family history of gout - (Added by TW Conv) Hypertension Mother Angle Zelaya Family history of hypertension - (Added by TW Conv) Memory loss Mother Angle Zelaya Relation Name Status Comments Brother Fernie Zelaya (Age 75) Father Dustin Zelaya (Age 60) Mother Angle Zelaya (Age 100) Social History Tobacco Use Types Packs/Day Years Used Date Smoking Tobacco: Never Smokeless Tobacco: Never Tobacco Cessation:Counseling Given: Not Answered Alcohol Use Standard Drinks/Week Comments Not Currently 0 (1 standard drink = 0.6 oz pur e alcohol) Sex and Gender Information Value Date Recorded Sex Assigned at Not on file Legal Sex Male 8:30 PM PARKING MANAGER Gender Identity Male 02/04/2021 8:53 AM PARKING MANAGER Sexual Orientation Straight 02/04/2021 8: 53 AM PARKING MANAGER Obstetrics History Last Filed Vital Signs Vital Sign Reading Time Taken Comments Blood Pressure 136/82 01/01/2025 11:23 AM CDT Pulse 68 01/01/2025 11:23 AM CDT Temperature 37 C (98.6 F) 07/15/2021 8:06 PM CDT Respiratory Rate - - Oxygen Saturation 98% 08/04/2024 8:18 AM CDT Inhaled Oxygen Concentration - - Weight 78.5 kg (173 lb 2 oz) 01/01/2025 11:23 AM CDT Height 167.6 cm (5' 6) 01/01/2025 11:23 AM CDT Body Mass Index 27.94 01/01/2025 11:23 AM CDT Plan of Treatment Health Maintenance Due Date Last Done Comments Colon Cancer Screening-Colonoscopy 1953 Depression Screening 1953 Fall Risk Assessment 1953 Hepatitis C Screening 1953 DTaP/Tdap/Td Vaccine (1 - Tdap) 1964 Hepatitis B Screening 11/24/1971 Pneumococcal vaccine 65+ (1 of 1 - PCV) 11/24/2003 Zoster Vaccine (1 of 2) 11/24/2003 Well Visit 65+ 2018 Influenza Vaccine (#1) 2024 12/27/2013, 2011 Medical Devices Implanted Type Area Copyist Device Identifier Shelf Expiration Date Model / Serial / Lot Copper Shavings-Eye Eye Right Wrist Fusion Wrist Left Knee Replacement Knee Insurance [facility] MEDICARE ADVANTAGE [facility] MEDICARE ADVANTAGE [facility] MEDICARE ADVANTAGE WORKERS COMPENSATION GENERIC [address] [place] [address] Care Teams Pickle Pumper Relationship Specialty Start Date End Date Moose Diallo MD [address] [place] [address] PCP - General Family Medicine 01/27/19
--- OUTSIDE RECORDS SUMMARY | 2025-01-05 08:42 | XMS_ITS | Clinical Summary ---
Author Organization [facility] Address [address] [place] [address] Care Team Providers Care Bus And Trolley Inspecting Dispatcher Name Role Phone Moose Diallo MD Primary Care Provider Social History Tobacco Use Types Packs/Day Years Used Date Smoking Tobacco: Never Assessed Sex and Gender Information Value Date Recorded Sex Assigned at Not on file Legal Sex Male 2:50 PM CDT Gender Identity Not on file Sexual Orientation Not on file Plan of Treatment Health Maintenance Due Date Last Done Comments Colorectal Cancer Screening Colonoscopy (10 Years) 1953 Hepatitis C 11/24/1971 DTaP, Tdap and Td Vaccines ( 1 - Tdap) 1972 Pneumococcal Vaccine: 50+ Years (1 of 1 - PCV) 11/24/2003 Annual Medicare Wellness Visit 2018 COVID-19 Vaccine (3 - 2024-2 6 season) 2024 06/06/2020, 05/14/2020 Influenza Adult (#1) 2024 01/16/2020 RSV Immunization or 60+ Years (1 - 1-dose 75+ series) 2028 Zoster Vaccines Completed 04/01/2020, 01/16/2020 Hepatitis A Vaccines Aged Out No long er eligible based on patient's age to complete this topic Meningococcal B Vaccine Aged Out No l onger eligible based on patient's age to complete this topic Meningococcal Vaccine Aged Out No chencho matthew eligible based on patient's age to complete this topic RSV Immunizations Under 20 Months Aged Out No longer eligible b ased on patient's age to complete this topic Insurance [facility] [place] [address] Care Teams Bus And Trolley Inspecting Dispatcher Relationship Specialty Start Date End Date Moose Diallo MD [address] [place] [address] PCP - General FAMILY PRACTICE 08/15/20
--- OUTSIDE RECORDS SUMMARY | 2025-01-05 08:42 | XMS_ITS | Clinical Summary ---
Author Organization [facility] Address [address] [place] [address] Care Team Providers Care Product Accountant Name Role Phone Moose Diallo MD Primary Care Provider Allergies No known active allergies Medications amoxicillin (AMOXIL) 500 mg capsule TAKE 4 CAPSULES BY MOUTH 1 HOUR PRIOR TO PROCEDURE AND 4 CAPSULES 8 HOURS AFTER 1 Active aspirin (ECOTRIN EC) 81 mg Tablet, Delayed Release (E.C.) Take 81 mg by mouth daily. 9 Active atorvastatin (LIPITOR) 20 mg tablet 9 Active buPROPion HCL (WELLBUTRIN SR) 150 mg Sustained Release 12 hour tablet bupropion HCl SR 150 mg tablet,12 hr sustained-rel ease Active cetirizine (ZyrTEC) 10 mg tablet Take 10 mg by mouth 2 times daily. Active Cholecalciferol, Vitamin D3, 250 mcg (10,000 unit) Capsule Take 10,000 Units by mouth daily. Active famotidine (PEPCID) 20 mg tablet Take 20 mg by mouth 2 times daily. Active fluticasone propionate (FLONASE) 50 mcg/spray Spencer, Suspension nasal inhaler SHAKE LIQUID AND USE 2 SPRAYS IN EACH NOSTRIL TWICE DAILY 1 Active gabapentin (NEURONTIN) 300 mg capsule TAKE 1 CAPSULE BY MOUTH THREE TIMES DAILY 1 Active lisinopriL (PRINIVIL) 20 mg tablet 9 Active Multivitamin Capsule Take 2 Capsules by mouth daily. Active Prasterone, DHEA, 25 mg Capsule Take 1 Capsule by mouth daily. Active calcium polycarbophil (FIBER THERAPY, CA POLYCARBOPH, ORAL) Take by mouth. Active Active Problems Problem Noted Date Diagnosed Date Erythrocytosis 10/11/2020 Family History Medical History Relation Name Comments Cancer Brother Colon Cancer Brother Heart Disease Father Relation Name Status Comments Brother Father Mother Social History Tobacco Use Types Packs/Day Years Used Date Smoking Tobacco: Never Smokeless Tobacco: Never Alcohol Use Standard Drinks/Week Comments Never 0 (1 standard drink = 0.6 oz pur e alcohol) Sex and Gender Information Value Date Recorded Sex Assigned at Not on file Legal Sex Male 2:33 PM CDT Gender Identity Not on file Sexual Orientation Not on file Last Filed Vital Signs Vital Sign Reading Time Taken Comments Blood Pressure 108/75 01/17/2021 9:15 AM CDT Pulse 97 01/17/2021 9:15 AM CDT Temperature 36.7 C (98.1 F) 01/17/2021 9:15 AM CDT Respiratory Rate - - Oxygen Saturation 98% 01/17/2021 9:15 AM CDT Inhaled Oxygen Concentration - - Weight 75.8 kg (167 lb) 01/17/2021 9:15 AM CDT Height 167.6 cm (5' 6) 01/17/2021 9:15 AM CDT Body Mass Index 26.95 01/17/2021 9:15 AM CDT Plan of Treatment Health Maintenance Due Date Last Done Comments DTAP/TDAP/TD VACCINES (1 - Tdap) 1972 COLORECTAL SCREENING 1998 Colorectal Cancer Screening 1998 FIT-DNA Q 3 years 1998 FIT/FOBT Q 1 year 1998 Flex Sig/CT Colonography Q 5 years 1998 PNEUMOCOCCAL VACCINE 50+ YEARS (1 of 1 - PCV) 11/24/19 04 ZOSTER VACCINE (1 of 2) 11/24/2003 INFLUENZA VACCINE (#1) 2024 11/20/2020 RSV VACCINE (60+ or ) (1 - 1-dose 75+ series) 2028 Insurance [facility] [id number] [place] [id number] Care Teams Product Accountant Relationship Specialty Start Date End Date Moose Diallo MD [address] [place] [address] PCP - General Family Practice 09/25/20
== END 2025-01-05 08:32 | disposition home or self-care (01) ==
LOC: ANHSURGERY 08:35
PROVIDERS: PCP Family Medicine; Visit Provider Orthopaedic Surgery
DX: R94.31 Abnormal electrocardiogram [ECG] [EKG] (principal); I10 Essential (primary) hypertension
CPT/HCPCS: 93005

== ENCOUNTER 2025-01-11 02:09 | Day surgery (SDC) | payer MEDICARE, SELFPAY ==
[2025-01-04 13:22] VITALS: BMI 27.3
--- NOTE | 2025-01-04 13:53 | PC.NURSE ---
[facility] has started construction of its new state of the art ER which will open Spring 2026. With this, we anticipate parking may be a challenge for some our surgical patients and families. Parking spaces are limited but are available for all Surgical, obstetrics, and ER patients sharing this lot. If you arrive and find you are having a hard time finding a parking space, please note that we understand the challenges, please drive around the hospital and park near Hospital Entrance 1. When you enter this entrance, you can ask a volunteer to direct or take you back to the surgical waiting area to check in. We appreciate everyone?s understanding of these expected challenges while we build for your future. Report to the Outpatient Waiting Room, entrance under the green pavilion located off [address], at time __11:00AM___ on date __01/11/25___. Planned Procedure Time: _1:00PM .? Time changes happen often and if your time is changed the preop area will call you the afternoon before. - You and your visitor will be asked to self-screen and do not enter if you have any COVID symptoms. Please call surgeon if you need to reschedule. - A mask is optional within the hospital at this time. Patients may have clear liquids (water, carbonated beverages, clear teas, apple juice) until 3 hours prior to surgery (10:00am) with a maximum of 20 ounces. - No food from midnight until time of surgery and no smoking, or chewing tobacco (or any form of nicotine). No chewing gum, candy or mints. Take only the following medications with a SIP of water on the morning of surgery: __DULOXETINE, GABAPENTIN__ DO NOT STOP ANY OF YOUR OTHER PRESCRIPTION MEDICATIONS PRIOR TO SURGERY EXCEPT THE FOLLOWING Hold all vitamins and supplements for 3 days per anesthesiologist.-LAST DOSE 01/07/25 Medications to discontinue per physician ___HOLD ASPIRIN 7 DAYS PRE-OP PER DR LARKIN(PER PATIENT)___ Date to take last dose 01/03/25 Please no make-up, nail vietnamese, hairspray, perfume, deodorant, or body powder the day of surgery.? No jewelry (including any body piercings) or valuables the day of surgery, leave them at home.? Please take a shower or bath the night before, or the morning of, surgery with an antibacterial soap.? Wear comfortable, loose fitting clothing.? - Jewelry must be removed prior to entering the operating room.? Rings and piercings that are not removed may be cut off. - The hospital will not accept responsibility for valuables.? - Please leave all valuables, including medications, at home the day of surgery. If you are going home after surgery, a licensed m48/m60 tank driver must drive you home.? - NO public transportation without another adult if you receive anesthesia. - We recommend that an adult stay with you for 24 hours following discharge. - We also recommend that you do not drive, make important decision, drink alcoholic beverages, or take any drugs that were not prescribed by your health care provider for at least 24 hours after your discharge time. Follow any additional instructions given to you from your surgeon. Telephone instructions given to PATIENT and asked if any additional questions and then verbalized understanding. Patient advised to call surgeon office or pre surgery nurse liaison [phone] if any additional questions.
[2025-01-11] VITALS (9 sets, daily range): BP systolic 105–135; BP diastolic 67–77; PULSE 49–70; RESP 14–17; TEMP 36.4–36.8; O2SAT 97–100; BMI 28.1
--- NOTE | ~2025-01-11 | XR_ITS ---
EXAMINATION: XR surgery orthopedic DATE: 01/11/2025 15:26 INDICATION: Right hallux metatarsophalangeal arthrodesis and second and third hammertoe corrections TECHNIQUE: 3 fluoroscopic images of the right forefoot were obtained during procedure performed by Dr. Preciado. Radiologist was not present for the imaging or procedure. The amount of fluoroscopy time used during this procedure was 0.8 minutes. Total DAP was 4.05 cGycm^2. COMPARISON: None. FINDINGS: First metatarsophalangeal arthrodesis with cannulated compression screw and dorsal plate-screw fixation. Second proximal interphalangeal joint arthrodesis which is spanned by a metallic implant. Osteotomy at the head of the third metatarsal with an axially directed percutaneous pin extending from the tuft of the distal phalanx across the middle and proximal phalanges and head of the third metatarsal with distal tip at the neck of the third metatarsal. Bone alignment appears near-anatomic. No fractures identified. IMPRESSION: 1. Fluoroscopy utilized during orthopedic procedure at the right forefoot. See procedure note for further detail. Reviewed, dictated and finalized at location A.
--- OUTSIDE RECORDS SUMMARY | 2025-01-11 02:11 | XMS_ITS | Clinical Summary ---
Author Organization [facility] Address [address] [place] [address] Care Team Providers Care Silver Plater Name Role Phone Moose Diallo MD Primary Care Provider [phone] Social History Tobacco Use Types Packs/Day Years [...] patient's age to complete this topic Insurance [facility] MEDICARE Care Teams Silver Plater Relationship Specialty Start Date End Date Moose Diallo MD [address] [place] [address] PCP - General FAMILY PRACTICE 08/15/20
--- OUTSIDE RECORDS SUMMARY | 2025-01-11 02:11 | XMS_ITS | Clinical Summary ---
Author Organization [facility] Address [address] [place] [address] Care Team Providers Care Board Layer Name Role Phone Moose Diallo MD Primary Care Provider [phone] Allergies No known active allergies Medications amoxicillin [...] daily. Active fluticasone propionate (FLONASE) 50 mcg/spray [place], Suspension nasal inhaler SHAKE LIQUID AND USE [...] (1 - 1-dose 75+ series) 2028 Insurance [facility] [id number] [place] [id number] Care Teams Board Layer Relationship Specialty Start Date End Date Moose Diallo MD [address] [facility] [address] [place] [address] PCP - General Family Practice 09/25/20
--- OUTSIDE RECORDS SUMMARY | 2025-01-11 02:11 | XMS_ITS | Clinical Summary ---
Author Organization [facility] Care Team Providers Care Hand Box Coverer Name Role Phone Unavailable Primary Care Provider Unavailabl e Social History Tobacco Use Types Packs/Day Years Used Date Smoking Tobacco: Never Assessed Sex and Gender Information Value Date Recorded Sex Assigned at Not on file Legal Sex Male 9:17 AM HYDROLOGIST Gender Identity Not on file Sexual Orientation [...] Immunization (#1) 2024 SARS-COV-2 Immunization ( - 2023- season) 2024 Respiratory Syncytial Virus (RSV) Immunization [...]
--- OUTSIDE RECORDS SUMMARY | 2025-01-11 02:11 | XMS_ITS | Clinical Summary ---
Author Organization [facility] Address [address] [place] [address] Care Team Providers Care Station Baggage Porter Name Role Phone Moose Diallo MD Primary Care Provider [phone] Source Comments [facility],non-owned Affiliates and Associated Physician Practices is amultiple site organization consisting of ambulatory clinics and hospital sitesin [place], [place] and [place]. This disclosure is being madepursuant to the Care Everywhere program and may not contain all information available regarding this patient. Last updated 17.[facility] Allergies No known active allergies Medications * [...] fluticasone propionate (Flonase) 50 MCG/ACT nasal spray Randolph 1 (one) spray into each nostril once [...] g 11 3 Active Cholecalciferol 1.25 MG (34762 UT)Indications: Vitamin D deficiency Take 50,000 Units by mouth every 7 days 12 capsule 3 4 Active traZODone (Desyrel) 50 MG tabletIndicatio ns:Chronic insomnia TAKE 1 TABLET BY MOUTH AT BEDTIME 90 tablet 3 4 Active Active Problems Problem Noted Date Diagnosed Date Orthostasis 02/20/2021 09/15/2022 Erythrocytosis 10/11/2020 09/15/2022 Coronary artery disease invo lving [place] coronary artery of [place] heart without angina pectoris 02/09/2020 09/15/2022 Abnormal [...] 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, [employer]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 Not on file Not [...] this topic Medical Devices Implanted Type Area Manager Tax Device Identifier Shelf Expiration Date Model / Serial / Lot Lead Nrstm Inspr 3 Eltrd Cuf Tn Victor Manuel - [id number] Implanted:Qty: 1 on 10/19/2022 by Sunny Delgado MD at [facility] Right: Neck [employer] 04/14/2025 [id number] / [id number] / Lead Ns Resp - [id number] Implanted:Qty: 1 on 10/19/2022 by Sunny Delgado MD at [facility] Right: Neck [employer] 06/29/2025 [id number] / [id number] / Gntr [facility] - [id number] Implanted:Qty: 1 on 10/19/2022 by Sunny Delgado MD at [facility] Right: Neck [employer] 06/19/2025 3028 / [id number] / Procedures Procedure Name Priority Date/Time Associated Diagnosis Comments GLUCOSE - POINT OF CARE Routine 10/19/2022 12:17 PM CDT from Last 3 Months or Most Recently Relevant to Health Maintenance Results * GLUCOSE - POINT OF CARE (10/19/2022 12:17 PM CDT) Glucose WB/POC 79 70 - 115 mg/dL 10/19/2022 12:22 PM CDT [facility] Specimen Type Venous 10/19/2022 12:22 PM CDT [facility] Blood BLOOD SPECIMEN / Unknown 10/19/2022 12:17 PM CDT 10/19/2022 12:22 PM CDT Sunny Delgado MD LAB - POINT OF CARE ORDER ERIN Final Result [facility] [address] [place] [address], [facility] [phone] from Last 3 Months or Most Recently Relevant to Health Maintenance Insurance [facility] MANAGED MEDICARE ADV [facility] MANAGED MEDICARE ADV Care Teams Station Baggage Porter Relationship Specialty Start Date End Date Moose Diallo MD [address] [facility] [place] [address] PCP - General 08/13/21
--- OUTSIDE RECORDS SUMMARY | 2025-01-11 02:12 | XMS_ITS | Clinical Summary ---
Author Organization [facility] Address [facility] [place] [address] Care Team Providers Care Barrel Centerer Name Role Phone Moose Diallo MD Primary [...] Orthostasis 02/20/2021 Coronary artery disease invo lving [place] coronary artery of [place] heart without angina pectoris 02/09/2020 Obstructive sleep apnea 01/27/2019 Essential hypertension 01/27/2019 Hyperlipidemia LDL goal <70 01/27/2019 Abnormal stress test 01/27/2019 Knee effusion, left 05/03/2017 Primary osteoarthritis of left knee 05/03/2017 Encounters Date Type Department Care Team Description 01/01/2025 11:30 AM CDT Office Visit [facility] [address] 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 Gender Identity Male 02/04/2021 8:53 AM TOOL PUSHER Sexual Orientation Straight 02/04/2021 8: 53 AM TOOL PUSHER Obstetrics History Last Filed Vital Signs Vital [...] 12/27/2013, 2011 Medical Devices Implanted Type Area Plumber Pipe Fitting Device Identifier Shelf Expiration Date Model / Serial / Lot Copper Shavings-Eye Eye Right Wrist Fusion Wrist Left Knee Replacement Knee Insurance [facility] MEDICARE ADVANTAGE [facility] MEDICARE ADVANTAGE [facility] MEDICARE ADVANTAGE WORKERS COMPENSATION GENERIC [address] [place] [address] Care Teams Barrel Centerer Relationship Specialty Start Date End Date Moose Diallo MD [address] [place] [address] PCP - General Family Medicine 01/27/19
--- NOTE | 2025-01-11 10:24 | WPDHPUPDATE1 ---
History and Physical Update Update Date/Time: 01/11/25 10:24 History and Physical has been reviewed, including an updated exam of the patient. There are NO changes in the patient's condition. Risks, benefits, and alternatives have been discussed and questions answered. Patient agrees to proceed with procedure.
--- NOTE | 2025-01-11 12:24 | WPDANESEPPF ---
Anes - Initial Pre Proc Eval Procedure: Operation Date: 01/11/25 13:00 Proposed Procedures p Right Hallux Metatarsophalangeal Arthrodesis Second and Third Hammertoe Correction, Proceed as Indicated - Zi Preciado MD Date/Time: 01/11/25 12:24 Surgeon: Zi Preciado MD Pre Op Diagnosis: Rt hallux rigidus, arthritis, hammertoes Patient Data Age: 69 Gender: M Height: 1.68 m Weight: 77 kg Allergies Allergy/AdvReac Type Severity Reaction Status Date / Time No Known Allergies Allergy Verified 01/04/25 13:16 Home Medications ?Medication ?Instructions ?Recorded ?Confirmed ?Type aspirin 81 mg tablet,delayed 81 mg PO DAILY 05/03/20 01/04/25 History release (Adult Aspirin Regimen) cholecalciferol (vitamin D3) 25 25 mcg PO DAILY 05/03/20 01/04/25 History mcg (1,000 unit) capsule famotidine 40 mg tablet (Pepcid) 40 mg PO DAILY #1 tablet 08/27/20 01/04/25 Rx cetirizine 10 mg tablet (24Hour 10 mg PO BID Allergy Symptoms 10/17/21 01/04/25 History Allergy) gabapentin 400 mg capsule 400 mg PO TID 11/17/22 01/04/25 History duloxetine 60 mg capsule,delayed 60 mg PO QAM 01/10/24 01/04/25 History release lisinopril 20 mg tablet 20 mg PO DAILY #90 tabs 04/07/24 01/04/25 Rx atorvastatin 40 mg tablet 40 mg PO QAM 01/04/25 01/04/25 History duloxetine 30 mg capsule,delayed 30 mg PO QAM 01/04/25 01/04/25 History release trazodone 50 mg tablet 50 mg PO HS 01/04/25 01/04/25 History Patient hx anesthesia problems: none Family hx anesthesia problems: none Results Review: All pre-operative results and documents have been reviewed as part of the pre-operative evaluation. [facility] Past Medical History Medical History Hammer toe of right foot Hammertoe of second toe of right foot Hallux rigidus of right foot Parkinsonism Lewy body dementia Skin cancer High cholesterol Lateral epicondylitis of right elbow Erectile dysfunction Memory difficulties Wellness examination Reflex sympathetic dystrophy Prostate cancer screening IGGY (obstructive sleep apnea) (~01/2009) s/p Inspire Grade I diastolic dysfunction Abnormal stress test Essential hypertension Hyperlipidemia Surgical History Surgical History S/P insertion of hypoglossal nerve stimulator Status post fusion of wrist Status post fusion of wrist H/O knee surgery Family History Family History Father Hypertension Family history of cardiovascular disease Heart disease Mother Diabetes mellitus Hypertension Sibling Carcinoma of colon Brain cancer Other Family history of arthritis Social History Social History Smoking status: Never smoker Second hand tobacco smoke exposure: Yes Alcohol intake: never Alcohol use details: quit 1993 Substance use: never Substance use type: does not use Lack of Transportation: No Lack of Food: Never True Current Housing: I Have Housing Concerned About Future Housing: No Difficulty Paying Gas/Electric Bills: No Difficulty Paying for Meds: No Currently Unemployed: No Education: High School Diploma/GED Difficulty w/ Childcare or Family Care: No Living arrangements: with family Additional living arrangements comments: Occupation/Education: retired Gender identity (if verbalized by the patient): Male Sexual Orientation (if Verbalized by the Patient): Straight or Heterosexual Spiritual care concerns: No Anes - Eval Final PreProcedure Day of Procedure 01/11/25 12:24 Patient weight: overweight Lungs: normal air movement Airway: Mallampati scale class IV Neurological: alert and oriented Last oral intake: >/= 8 hours ASA classification: III Emergent: no Anesthetic plan: proceed Anesthesia type and monitoring: general GIVS and standard monitoring Results Review: All pre-operative results and documents have been reviewed as part of the pre-operative evaluation. IGGY w inspire device in place, HTN, hyperlipidemia, neuropathy. No cp or sob w walking 1-2 fos. Informed Consent: The patient's anesthetic plan and its attendant risks and benefits were discussed with the patient/family/POA. Questions were solicited and answers provided to the satisfaction of the patient/family/POA.
[2025-01-11] MEDS: ACETAMINOPHEN 500 MG TABLET 1000 MG PO (12:40)
[2025-01-11] MEDS: LACTATED RINGERS 1,000 ML 30 ML IV CONT ×2 (12:50→15:41)
[2025-01-11] MEDS: KETOROLAC 15 MG/ML VIAL (*BKC) IV PUSH (12:53)
--- NOTE | 2025-01-11 13:24 | W.PM.PROC2 ---
Procedure Note - Detailed Date of Procedure 01/11/25 Pre-op Diagnosis Rt hallux rigidus, arthritis, hammertoes 2, 3 Post-op Diagnosis Same Procedure Performed Right hallux metatarsophalangeal arthrodesis, hammertoe correction with PIP arthrodesis right 2nd and 3rd toes Surgeon Zi Preciado MD Chief Station Engineer 1st multimedia assistant Anesthesia General Indications 69-year-old gentleman with severe right hallux arthritis and hammertoe deformity. Severe pain with activity and weight-bearing. Difficulty with shoe wear. Unrelieved with conservative treatment. Presents for operative treatment. Description of Procedure Patient identified in the preoperative holding. Informed consent given. Operative extremity marked. Patient received intravenous antibiotics. Patient brought to the operating room where underwent general anesthetic by anesthesia team. Positioned supine on operating room table. Time-out performed confirming the patient, site of the surgery and the plan. Right foot prepped and draped usual sterile surgical fashion using a ChloraPrep skin solution. Foot and ankle exsanguinated and a calf tourniquet inflated to 225 mmHg. Longitudinal incision made dorsum of hallux centered over metatarsophalangeal joint with a 15 blade knife. Hemostasis controlled electrocautery. Extensor hallucis tendon retracted laterally and a dorsal capsulotomy performed in line with the longitudinal skin incision. Soft tissue released off of the metatarsal to expose the joint. Extensive scar and fibrosis of the joint noted. Rongeur used to remove excess osteophytes. Reaming of the joint then performed with the Arthrex joint preparation reamers. Guide pin placed metatarsal and reaming performed size 18 mm. Guide pin then placed in the proximal phalanx and reaming performed to a size 18 mm. Wound thoroughly irrigated and debris removed. Plantar osteophytes carefully removed. Joint then aligned and provisionally pinned. Alignment checked with image intensification. Fixation achieved with a dorsal locking plate with compression and a 4.0 mm lag screw. Image intensification confirmed final position. Wound irrigated and capsule closed with 2-0 vicryl interrupted suture. Subcutaneous tissue repaired with 3-0 Monocryl interrupted suture and skin repaired with 4-0 nylon interrupted suture. 2nd toe then addressed. Dorsal longitudinal incision made over the 2nd toe proximal interphalangeal joint with 15 blade knife. Hemostasis controlled electrocautery. Dorsal capsulotomy performed including the extensor tendon. Medial and lateral collateral ligaments released off of the proximal phalanx. Distal and of the proximal phalanx and the proximal end of the middle phalanx resected with bone cutter and rongeur. Any prominent bone or spurring removed with rongeur. Joint thoroughly irrigated with antibiotic solution. Joint then prepared, reduced and fixed with internal joint arthrodesis fixation device. Alignment checked with image intensification. Wound thoroughly irrigated. Capsule closed with 3 O Monocryl interrupted suture. Skin repaired with 4 O nylon interrupted suture. 3rd toe then addressed. Dorsal longitudinal incision made over the 3rd toe proximal interphalangeal joint with 15 blade knife. Hemostasis controlled electrocautery. Dorsal capsulotomy performed including the extensor tendon. Medial and lateral collateral ligaments released off of the proximal phalanx. Distal and of the proximal phalanx and the proximal end of the middle phalanx resected with bone cutter and rongeur. Any prominent bone or spurring removed with rongeur. Joint thoroughly irrigated with antibiotic solution. Joint then reduced and fixed with 1.1 mm K-wire. Alignment checked with image intensification. Wound thoroughly irrigated. Capsule closed with 3 O Monocryl interrupted suture. Skin repaired with 4 O nylon interrupted suture. Sterile dressing applied. Tourniquet released. Good capillary refill noted in the toe. Patient awoke from anesthesia, extubated and taken to the recovery room in stable condition. All sponge, needle, instrument counts correct at the end of the case. Implants Hallux metatarsophalangeal arthrodesis plate and screws, hammertoe implant x1, 1.1 mm K-wire Estimated Blood Loss 10 Tourniquet Time Total Tourniquet Time: 105 Drains No Packing No Pathology None sent Complications None Condition Stable Disposition PACU [facility] Billing Surgery - Charge Forward: Surgery Billing ([id number], [id number], [id number])
[2025-01-11] MEDS: ceFAZolin 2 GM in SODIUM CHLORIDE 0.9% IV 50 ML 100 ML IVPB (13:34)
[2025-01-11] MEDS: BUPivacaine HCL 0.5% 10 ML AMP 30 ML INFILTRATE (13:59)
== END 2025-01-11 17:40 | disposition home or self-care (01) ==
PROVIDERS: PCP Family Medicine; Visit Provider Orthopaedic Surgery
PROC: (CPT 28750; principal; 2025-01-11 13:00)
DX: M20.21 Hallux rigidus, right foot (principal); M20.41 Other hammer toe(s) (acquired), right foot; M19.071 Primary osteoarthritis, right ankle and foot
CPT/HCPCS: 28285 ×2; 28750; 99199; J0690; A9270; C1713; C1769; J1885; J2003; J2405; J2704; J3010; J7120